=== PATIENT | female | born 1990 | race Caucasian/White ===

== ENCOUNTER 2016-12-15 00:40 | Emergency (ER) | payer OTHER ==
[~2016-12-15] VITALS: Ht 170.2 cm; Wt 70.0 kg
[2016-12-15] MEDS ORDERED: ALBU90AE INH (00:47)
[2016-12-15 01:35] LABS: HIV 1&2 ANTIBODY SCREEN Nonreactive (Nonreactive); HIV-1 p24 ANTIGEN Nonreactive (Nonreactive)
[2016-12-15 01:46] VITALS: BP 129/78
[2016-12-15 02:00] LABS: HEP B SURF. AB 979.2 mIU/mL (0.0-10.0)
[2016-12-15 02:39] LABS: HEPATITIS C VIRUS ANTIBODY Nonreactive (Nonreactive)
== END 2016-12-15 01:48 | disposition home or self-care (01) ==
LOC: ED 01:09
DX: Z77.21 Contact with and (suspected) exposure to potentially hazardous body fluids (principal)
CPT/HCPCS: 36415; 86703; 86705; 86706; 86803; 87340; 87899; 99284; G0435